=== PATIENT | female | born 1935 | race Caucasian/White ===

== ENCOUNTER 2016-11-29 09:59 | Emergency (ER) | payer MEDICARE, BC ==
[2016-11-29] MEDS ORDERED: Aspirin 81 MG Tab.Chew PO ONE (10:07)
--- NOTE | 2016-11-29 10:37 | EDM.PDOC ---
ED HISTORY OF PRESENT ILLNESS - General Stated Complaint: CARDIAC Time Seen by Provider: 11/29/16 10:20 Source of Information: Reports: Patient History Limitations: Reports: No limitations - History of Present Illness INITIAL COMMENTS - FREE TEXT/NARRATIVE: This 81 yo female patient was sent to the ED from the [facility]. The provider (Jennyfer Astorga) reported that the patient was seen in the ED yesterday in the clinic, diagnosed with a URI as started on a Z-pack. The patient was advised to return today for a follow-up appointment. During the visit today, the patient had an EKG done that demonstrated ST elevation, thus leading to the patient being sent to the ED. Apparently, the chest x-ray done yesterday in the clinic demonstrated possible CHF and a questionable left lower lobe pneumonia. The patient reports she just returned from her sister's house a couple of days ago. The patient reports she has been at her sister's house since September. The patient reports she has had increased tiredness over the past 1-2 weeks and a cough for the past week or so. 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(s) (The patient was started on a Z- pack yesterday) - Related Data Allergies/ADRs: Allergies Allergy/AdvReac Type Severity Reaction Status Date / Time No Known Allergies Allergy Verified 11/29/16 10:22 Home Meds: Home Meds Azithromycin [Zithromax] 1 tab PO ASDIRECTED 11/29/16 [History] B Cmplx 4/Vit D3/C/FA/Zinc Ox [Vital-D Rx] 1 tab PO DAILY 11/29/16 [History] Gluc/Soham-Msm#1/Vit C/Orville/Bor [Uaacdmu-Tlwxt-GVZ Complex Cplt] 1 tab PO DAILY 11/29/16 [History] Multivitamin [Multi-Vitamin Daily] 1 tab PO DAILY 11/29/16 [History] Non-Formulary Medication [NF Drug] 100 mg PO DAILY 11/29/16 [History] ED ROS GENERAL - Review of Systems Review Of Systems: ROS reveals no pertinent complaints other than HPI. ED EXAM, GENERAL - Physical Exam Exam: See Below Exam Limited By: No limitations General Appearance: alert, WD/WN, no apparent distress Eye Exam: bilateral eye: EOMI, normal inspection, PERRL Ears: normal external exam, normal canal, hearing grossly normal, normal TMs, other (small amount of cerumen bilaterally) Nose: normal inspection, normal mucosa, no blood Throat/Mouth: Normal inspection, Normal lips, Normal teeth, Normal gums, Normal oropharynx, Normal voice, No airway compromise Head: atraumatic, normocephalic Neck: normal inspection, supple, non-tender, full range of motion Respiratory/Chest: no respiratory distress, lungs clear, normal breath sounds, no accessory muscle use, chest non-tender Cardiovascular: normal peripheral pulses, regular rate, rhythm, no edema, no gallop, no JVD, systolic murmur GI/Abdominal: normal bowel sounds, soft, non tender, no organomegaly, no distention, no abnormal bruit, no mass (Female) Exam: Deferred Rectal (Female) Exam: Deferred Back Exam: normal inspection, full range of motion, NT Extremities: normal inspection, normal range of motion, non-tender, normal capillary refill, no pedal edema Neurological: alert, oriented, CN II-XII intact, normal cognition, normal gait, normal reflexes, no motor/sensory deficits Psychiatric: normal affect, normal mood Skin Exam: Warm, Dry, Intact, Normal color, No rash Lymphatic: no adenopathy Course - Vital Signs Last Recorded V/S: Last Vital Signs Temp 36.2 C 11/29/16 10:29 Pulse 82 11/29/16 16:19 Resp 16 11/29/16 16:19 BP 137/70 11/29/16 15:16 Pulse Ox 93 L 11/29/16 16:19 - Orders/Labs/Meds Orders: Active Orders 24 hr Category Date Time Status EKG Documentation Completion [RC] ROUTINE Care 11/29/16 16:00 Active EKG Documentation Completion [RC] URGENT Care 11/29/16 10:05 Active Heart Healthy Diet [DIET] Diet 11/29/16 Lunch Active CULTURE SPUTUM + SMEAR [RM] Stat Lab 11/29/16 10:38 Results Labs: Laboratory Tests 0311/29/16 11/29/16 Range/Units 10:18 10:18 16:00 WBC 3.7 L (5.0-10.0) 10^3/uL RBC 4.02 L (4.2-5.4) 10^6/uL Hgb 13.1 (12.0-16.0) g/dL Hct 37.2 (37.0-47.0) % MCV 92.5 (80-100) fL MCH 32.6 (27.0-34.0) pg MCHC 35.2 H (33.0-35.0) g/dL Plt Count 160 (150-450) 10^3/uL Neut % (Auto) 65.2 (42.2-75.2) % Lymph % (Auto) 19.0 L (20.5-50.1) % Vance % (Auto) 15.2 H (2-8) % Eos % (Auto) 0.3 L (1.0-3.0) % Baso % (Auto) 0.3 (0.0-1.0) % Sodium 132 L (135-145) mmol/L Potassium 3.2 L (3.6-5.0) mmol/L Chloride 95 L (101-111) mmol/L Carbon Dioxide 26.0 (21.0-31.0) mmol/L Anion Gap 14.2 BUN 10 (7-18) mg/dL Creatinine 0.6 (0.6-1.3) mg/dL Est Cr Clr Drug Dosing 55.09 mL/min Estimated GFR (MDRD) > 60 BUN/Creatinine Ratio 16.66 Glucose 93 (74-105) mg/dL Calcium 8.7 (8.4-10.2) mg/dl Total Bilirubin 0.7 (0.2-1.0) mg/dL AST 38 (10-42) IU/L ALT 20 (10-60) IU/L Alkaline Phosphatase 64 (42-121) IU/L Troponin I 0.08 H* 0.07 H* (0.00-0.02) ng/ml B-Natriuretic Peptide 289 H (0-100) pg/ml Total Protein 7.1 (6.7-8.2) g/dl Albumin 3.7 (3.2-5.5) g/dl Globulin 3.4 Albumin/Globulin Ratio 1.09 Meds: Medications Discontinued Medications Generic Name Dose Route Start Last Admin Trade Name Tiarra PRN Reason Stop Dose Admin Aspirin 324 mg 11/29/16 10:07 11/29/16 10:11 Aspirin PO 11/29/16 10:08 324 mg ONETIME ONE Administration - Re-Assessments/Exams Free Text/Narrative Re-Assessment/Exam: 11/29/16 11:16 Discussed the history, examination, EKG and lab results with Dr. Silvestre ( Rehabilitation Manager with [facility] in [place]). Dr. Silvestre compared her recent EKG with an EKG done 3 years ago and reported no changes. Dr. Silvestre advised us to repeat the Troponin level. If the there is further elevation in the Troponin level, he should be consulted. If there is no further elevation, the patient may be released, but should follow-up with cardiology for further evaluation and treatment of the aortic stenosis. Dr. Gómez was also consulted with the patient information and agreed with keeping the patient as an extended ED patient for a repeat Troponin. Departure - Departure Time of Disposition: 16:53 Disposition: Home, Self-Care 01 Condition: fair Clinical Impression: Bronchitis, Non-cardiac chest pain Instructions: Acute Bronchitis, [id number], Heart Failure, [id number] Forms: ED Department Discharge Care Plan Goals: The patient was advised of the examination, lab, EKG, x-ray, repeat EKG and repeat lab results during the visit. The patient was encouraged to continue taking her Azithromycin as prescribed. 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 If the patient has any additional symptoms the patient should follow-up with her primary care facility. - My Orders Last 24 Hours: My Active Orders 11/29/16 10:05 EKG Documentation Completion [RC] URGENT 11/29/16 10:38 CULTURE SPUTUM + SMEAR [RM] Stat 11/29/16 16:00 EKG Documentation Completion [RC] ROUTINE 11/29/16 Lunch Heart Healthy Diet [DIET] - Assessment/Plan Last 24 Hours: My Active Orders 11/29/16 10:05 EKG Documentation Completion [RC] URGENT 11/29/16 10:38 CULTURE SPUTUM + SMEAR [RM] Stat 11/29/16 16:00 EKG Documentation Completion [RC] ROUTINE 11/29/16 Lunch Heart Healthy Diet [DIET]
[2016-11-29 10:44] LABS: CHLORIDE,CL 95 mmol/L (101-111); SODIUM,NA 132 mmol/L (135-145)
[2016-11-29 15:17] VITALS: BP 137/70
--- NOTE | 2016-12-03 11:10 | EKG ---
11/29/2016 - LATHA RIVERA M - TIME: 1606 hours. EKG shows sinus rhythm. There is left bundle branch block. [facility] /[id number]
--- NOTE | 2016-12-03 11:10 | EKG ---
11/29/2016 - LATHA RIVERA - TIME: 10:04 a.m. EKG shows sinus rhythm. There is left bundle branch block. [facility] /[id number]
== END 2016-11-29 17:14 | disposition home or self-care (01) ==
LOC: DL.ED 09:59
DX: J40 Bronchitis, not specified as acute or chronic (principal); R07.89 Other chest pain; Z79.899 Other long term (current) drug therapy
CPT/HCPCS: 36415; 80053; 83880; 84484; 85025; 87070; 87205; 93005; 99285; A9270; 93010; 99284

== ENCOUNTER 2017-01-04 12:31 | Emergency (ER) | payer MEDICARE, BC ==
[2017-01-04 13:06] VITALS: BP 154/69
--- NOTE | 2017-01-04 15:33 | EDM.PDOC ---
ED HPI LOWER BACK PAIN/INJURY - General Chief Complaint: Back Pain or Injury Stated Complaint: [id number] BACK MUSCLE SPAZ Time Seen by Provider: 01/04/17 15:21 Source of Information: Reports: Patient, Family (daughter in law) History Limitations: Reports: No limitations. Denies: Physical impairment - History of Present Illness INITIAL COMMENTS - FREE TEXT/NARRATIVE: Here with her daughter in law. Pain in the bilateral thoracic back muscles. She points to the area of the Rhomboid muscles. No bony localized pain and only in upper back. Lives in an apartment and can take an elevator. She does not recall any activity which would have triggered the pain. No radiation of the pain. No low back pain. Intermittent pain. 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 (see below) (none) - Related Data Allergies/ADRs: Allergies Allergy/AdvReac Type Severity Reaction Status Date / Time No Known Allergies Allergy Verified 11/29/16 10:22 Home Meds: Home Meds B Cmplx 4/Vit D3/C/FA/Zinc Ox [Vital-D Rx] 1 tab PO DAILY 11/29/16 [History] Gluc/Soham-Msm#1/Vit C/Orville/Bor [Kfgtsaw-Knhjj-YPJ Complex Cplt] 1 tab PO DAILY 11/29/16 [History] Multivitamin [Multi-Vitamin Daily] 1 tab PO DAILY 11/29/16 [History] Past Medical History Other Cardiovascular History: patient newly diagnosed with cardiac problem but isnt sure the name Social & Family History - Tobacco Use Smoking Status *Q: Current Every Day Smoker Years of Tobacco use: 15 Packs/Tins Daily: 1.5 Second Hand Smoke Exposure: Yes - Caffeine Use Caffeine Use: Reports: Coffee - Alcohol Use Days Per Week of Alcohol Use: 2 Number of Drinks Per Day: 2 Total Drinks Per Week: 4 - Recreational Drug Use Recreational Drug Use: No ED ROS GENERAL - Review of Systems Review Of Systems: See Below Constitutional: Reports: no symptoms HEENT: Reports: No symptoms Respiratory: Reports: No Symptoms Cardiovascular: Reports: Other (known heart murmur) Endocrine: Reports: no symptoms GI/Abdominal: Reports: No symptoms Musculoskeletal: Reports: back pain (points to paraspinal thoracic back muscles without midline back pain) Skin: Reports: no symptoms Neurological: Denies: Headache, Numbness, Paresthesia, Difficulty Walking, Weakness Psychiatric: Reports: No symptoms Hematologic/Lymphatic: Reports: no symptoms ED EXAM,LOWER BACK PAIN/INJURY - Physical Exam Exam: See Below Exam Limited By: No limitations General Appearance: alert, WD/WN, no apparent distress Eye Exam: bilateral eye: normal inspection Ears: normal external exam Nose: normal inspection Throat/Mouth: Normal inspection Head: atraumatic, normocephalic Neck: normal inspection, supple, full range of motion. No: non-tender Back Exam: normal inspection, paraspinal tenderness. No: CVA tenderness (L), CVA tenderness (R), muscle spasm, vertebral tenderness Extremities: normal inspection, normal range of motion, non-tender, no pedal edema, normal capillary refill Neurological: alert, normal mood/affect, CN II-XII intact, normal gait, normal reflexes, oriented x 3. No: straight leg raise (L), straight leg raise (R), saddle anesthesia DTR - Lower Extremities: 2+: knee (R), knee (L), ankle (R), ankle (L) Psychiatric: normal affect, normal mood Skin Exam: Warm, Dry, Intact, Normal color, No rash Lymphatic: no adenopathy Course - Vital Signs Last Recorded V/S: Last Vital Signs Temp 97.4 F 01/04/17 12:58 Pulse 89 01/04/17 12:58 Resp 16 01/04/17 12:58 BP 154/69 H 01/04/17 12:58 Pulse Ox 98 01/04/17 12:58 Departure - Departure Time of Disposition: 15:45 Disposition: Home, Self-Care 01 Condition: good Clinical Impression: Thoracic back sprain, Thoracic back pain Instructions: Muscle Strain, Yuzy-[id number], Back Pain, Adult, [id number] Forms: ED Department Discharge
== END 2017-01-04 16:01 | disposition home or self-care (01) ==
LOC: DL.ED 12:31
DX: S23.3XXA Sprain of ligaments of thoracic spine, initial encounter (principal); F17.210 Nicotine dependence, cigarettes, uncomplicated; Z79.899 Other long term (current) drug therapy; X58.XXXA Exposure to other specified factors, initial encounter
CPT/HCPCS: 99282; 99283